=== PATIENT | female | born 1955 | race Caucasian/White ===

== ENCOUNTER → 2017-10-08 | Outpatient (CLI) | payer OTHER | END | disposition home or self-care (01) | LOC: ECHO 13:46 | DX: I10 Essential (primary) hypertension (principal); I35.0 Nonrheumatic aortic (valve) stenosis | CPT/HCPCS: 93306 ==

== ENCOUNTER → 2019-04-13 | Outpatient (CLI) | payer MEDICAID ==
--- NOTE | 2019-04-13 11:15 | CARD ---
MR#: [id number] Date of Study: 04/13/2019 Ordering Physician: JOSIAH PERRY, Referring Physician: JOSIAH PERRY Tech: Roselia Alejandro RDCS APPROVED REPORT EXAM: Two-dimensional and M-mode echocardiogram with Doppler and color Doppler. Other Information Quality : Good INDICATION Aortic Valve Disease 2D DIMENSIONS RVDd2.2 (2.9-3.5cm)Left Atrium(2D)2.7 (1.6-4.0cm) IVSd0.8 (0.7-1.1cm)Aortic Root(2D)2.7 (2.0-3.7cm) LVDd4.2 (3.9-5.9cm)LVOT Diameter1.9 (1.8-2.4cm) PWd0.7 (0.7-1.1cm)LVDs2.8 (2.5-4.0cm) FS (%) 34.4 %SV51.4 ml LVEF(%)60.0 (>50%) Aortic Valve AoV Peak Jey.241.6cm/sAoV VTI43.7cm AO Peak GR.23.4mmHgLVOT Peak Jey.89.4cm/s AO Mean GR.13mmHgAVA (VMAX)1.10cm2 DONNY (VTI)1.10cm2 Mitral Valve MV E Kmsdgwyx80.0cm/sMV DECEL HAJO235tb MV A Rlobdjje20.9cm/sE/A Ratio0.7 Tricuspid Valve TR P. Njelbwhp582gv/sRAP RXJNUZEU3ljEt TR Peak Gr.07fdUnEHZE14zaEq Pulmonary Vein S1 Ofdgpizt30.0cm/sD2 Obnyfqac60.2cm/s LEFT VENTRICLE The left ventricle is normal size. There is normal left ventricular wall thickness. The left ventricu lar systolic function is normal and the ejection fraction is within normal range. The Ejection Fracti on is 55-60%. There is normal LV segmental wall motion. Transmitral Doppler flow pattern is Grade I-a bnormal relaxation pattern. RIGHT VENTRICLE The right ventricle is normal size. The right ventricular systolic function is normal. ATRIA The left atrium size is normal. The right atrium size is normal. The interatrial septum is intact wit h no evidence for an atrial septal defect or patent foramen ovale as noted on 2-D or Doppler imaging. AORTIC VALVE The aortic valve is functionally bicuspid with fusion of the right and left cusps. Doppler and Color Flow revealed trace aortic regurgitation. Calculated aortic valve area is 1.1 cm2 with maximum pressu re gradient of 24 mmHg and mean pressure gradient of 13 mmHg. Doppler and color-flow analysis reveale d mild aortic stenosis. Planimeter of the aortic valve shows an area of 1.7 cm2. MITRAL VALVE The mitral valve is calcified but opens well. Mitral annular calcification is mild. There is no evide nce of mitral valve prolapse. There is no mitral valve stenosis. Doppler and Color Flow revealed no m itral valve regurgitation noted. TRICUSPID VALVE The tricuspid valve is normal in structure and function. Doppler and Color Flow revealed physiologica l tricuspid regurgitation. The PA pressure was estimated at 19 mmHg. There is no tricuspid valve sten osis. PULMONIC VALVE Doppler and Color Flow revealed trace to mild pulmonic valvular regurgitation. There is no pulmonic v alvular stenosis. GREAT VESSELS The aortic root is normal in size. The ascending aorta is normal in size. The IVC is normal in size a nd collapses >50% with inspiration. PERICARDIAL EFFUSION There is no evidence of significant pericardial effusion. Critical Notification Critical Value: No <Conclusion> The left ventricular systolic function is normal and the ejection fraction is within normal range. Th e Ejection Fraction is 55-60%. There is normal LV segmental wall motion. The aortic valve is functionally bicuspid with fusion of the right and left cusps. Calculated aortic valve area is 1.1 cm2 with maximum pressure gradient of 24 mmHg and mean pressure g radient of 13 mmHg. Doppler and color-flow analysis revealed mild aortic stenosis. Planimeter of the aortic valve shows an area of 1.7 cm2. Signed by : Josep Aaron, Electronically Approved : 04/13/2019 11:15:11
== END | disposition home or self-care (01) ==
LOC: ECHO 10:31
PROVIDERS: ATTEND Internal Medicine Cardiovascular Disease
DX: I08.8 Other rheumatic multiple valve diseases (principal)
CPT/HCPCS: 93306

== ENCOUNTER → 2020-04-18 | Outpatient (CLI) | payer MEDICAID ==
--- NOTE | 2020-04-20 11:41 | CARD ---
MR#: [id number] Date of Study: 04/18/2020 Ordering Physician: JOSIAH PERRY, Referring Physician: JOSIAH PERRY Tech: Mavis Salas MADYSON APPROVED REPORT EXAM: Two-dimensional and M-mode echocardiogram with Doppler and color Doppler. Other Information Quality : AverageLimitedTechnically LimitedExcellentGoodAverageHR: 73bpm Rhythm : NSR INDICATION Aortic Valve Disease Murmur RISK FACTORS Hyperlipidemia 2D DIMENSIONS RVDd3.2 (2.9-3.5cm)Left Atrium(2D)2.9 (1.6-4.0cm) IVSd0.8 (0.7-1.1cm)Aortic Root(2D)2.8 (2.0-3.7cm) LVDd3.6 (3.9-5.9cm)LVOT Diameter1.9 (1.8-2.4cm) PWd0.8 (0.7-1.1cm)LVDs2.2 (2.5-4.0cm) FS (%) 37.6 %SV37.4 ml Aortic Valve AoV Peak Jey.229.3cm/sAoV VTI50.2cm AO Peak GR.21.0mmHgLVOT Peak Jey.83.5cm/s AO Mean GR.11mmHgAVA (VMAX)0.99cm2 Mitral Valve MV E Fznkhdam29.4cm/sMV DECEL BWLP642os MV A Hvkleigs63.7cm/sE/A Ratio1.0 MV A Ctgxacbg176wr Pulmonary Valve PV Peak Toocqtne88.5cm/s Tricuspid Valve TR P. Umbykgkc255bk/sTR Peak Gr.20mmHg Pulmonary Vein S1 Odwsrspd24.7cm/sD2 Upjrirhh59.9cm/s PVa espfjqez681ervn LEFT VENTRICLE The left ventricle is normal size. There is normal left ventricular wall thickness. The left ventricu lar systolic function is normal and the ejection fraction is within normal range. Ejection fraction 5 5-60%. There is normal LV segmental wall motion. Tissue Doppler imaging reveals mild abnormal left ve ntricular diastolic dysfunction. No left ventricle thrombus noted on this study. RIGHT VENTRICLE The right ventricle is normal size. There is normal right ventricular wall thickness. The right ventr icular systolic function is normal. ATRIA The left atrium size is normal. The right atrium size is normal. The interatrial septum is intact wit h no evidence for an atrial septal defect or patent foramen ovale as noted on 2-D or Doppler imaging. AORTIC VALVE The aortic valve is mildly calcified. Doppler and Color Flow revealed no significant aortic regurgita tion. There is mild valvular aortic stenosis. MITRAL VALVE The mitral valve is normal in structure and function. There is no evidence of mitral valve prolapse. There is no mitral valve stenosis. Doppler and Color-flow revealed mild mitral regurgitation. TRICUSPID VALVE The tricuspid valve is normal in structure and function. Doppler and Color Flow revealed mild tricusp id regurgitation. PULMONIC VALVE The pulmonary valve is normal in structure and function. Doppler and Color Flow revealed no pulmonic valvular regurgitation. GREAT VESSELS The aortic root is normal in size. The descending aorta is upper limits of normal. The IVC is normal in size and collapses >50% with inspiration. PERICARDIAL EFFUSION There is no evidence of significant pericardial effusion. Critical Notification Critical Value: No <Conclusion> The left ventricle is normal size. The left ventricular systolic function is normal and the ejection fraction is within normal range. Ejection fraction 55-60%. There is normal LV segmental wall motion. The aortic valve is mildly calcified. Doppler and Color Flow revealed no significant aortic regurgitation. There is mild valvular aortic stenosis. Doppler and Color-flow revealed mild mitral regurgitation. Doppler and Color Flow revealed mild tricuspid regurgitation. Signed by : Lenny Duncan MD Electronically Approved : 04/20/2020 11:40:55
== END ==
LOC: ECHO 10:30
PROVIDERS: ATTEND Internal Medicine Cardiovascular Disease
DX: I08.3 Combined rheumatic disorders of mitral, aortic and tricuspid valves (principal)
CPT/HCPCS: 93306

== ENCOUNTER → 2020-05-03 | Outpatient (CLI) | payer MEDICAID ==
[~2020-05-03] MED LIST: ACET500T68 PO; BUPR100T8 PO; CALC-77 PO; CRESTOR5 MG PO; ESTR1TAB5 PO; HYDR12.575 PO; LACT1CAP37 PO; LORA10TA3 PO; MECO10005 PO; MULT-245 PO; ONDA4TAB12 PO; TEMA15CA PO; TIZA4TAB2 PO; TOPI50TA8 PO; VILA1TAB2 PO
== END ==
LOC: LAB 11:17
PROVIDERS: ATTEND Internal Medicine Cardiovascular Disease
DX: Z01.812 Encounter for preprocedural laboratory examination (principal); I63.9 Cerebral infarction, unspecified; I35.0 Nonrheumatic aortic (valve) stenosis; Z20.828 Contact with and (suspected) exposure to other viral communicable diseases
CPT/HCPCS: U0003

== ENCOUNTER 2020-05-07 08:38 | Outpatient (CLI) | payer MEDICAID ==
[~2020-05-07] VITALS: Ht 154.9 cm; Wt 48.5 kg
[2020-05-07] VITALS (7 sets, daily range): BP systolic 109–124; BP diastolic 62–68
[2020-05-07 09:19] LABS: HEMATOCRIT 38.8 % (36.0-47.0); HEMOGLOBIN 13.1 g/dL (12.0-15.5); RED BLOOD COUNT 4.2 x10^6/uL (3.50-5.40); WHITE BLOOD COUNT 5.8 x10^3/uL (4.0-11.0)
[2020-05-07 09:35] LABS: PROTHROMBIN TIME PATIENT 13.6 SEC (11.7-14.0)
[2020-05-07] MEDS ORDERED: LIDOCAINE 2%/EPI 1:100,000 20 ML VIAL. ONE (10:01)
[2020-05-07] MEDS ORDERED: fentaNYL PF VIAL 100 MCG/2 ML VIAL ONE (10:11)
[2020-05-07] MEDS ORDERED: BUPR100T8 PO (10:27)
[2020-05-07] MEDS ORDERED: ONDA4TAB12 PO (10:27)
[2020-05-07] MEDS ORDERED: TIZA4TAB2 PO (10:27)
[2020-05-07] MEDS ORDERED: MULT-245 PO (10:27)
[2020-05-07] MEDS ORDERED: ESTR1TAB5 PO (10:27)
[2020-05-07] MEDS ORDERED: VILA1TAB2 PO (10:27)
[2020-05-07] MEDS ORDERED: TEMA15CA PO (10:27)
[2020-05-07] MEDS ORDERED: LORA10TA3 PO (10:27)
[2020-05-07] MEDS ORDERED: MECO10005 PO (10:27)
[2020-05-07] MEDS ORDERED: HYDR12.575 PO (10:27)
[2020-05-07] MEDS ORDERED: ACET500T68 PO (10:27)
[2020-05-07] MEDS ORDERED: TOPI50TA8 PO (10:27)
[2020-05-07] MEDS ORDERED: LACT1CAP29 PO (10:27)
[2020-05-07] MEDS ORDERED: CALC-77 PO (10:27)
[2020-05-07] MEDS ORDERED: CRESTOR5 MG PO (10:27)
[2020-05-07] MEDS ORDERED: fentaNYL PF VIAL 100 MCG/2 ML VIAL IV ONE (10:30)
[2020-05-07] MEDS ORDERED: LIDOCAINE 2%/EPI 1:100,000 20 ML VIAL. IJ ONE (10:30)
--- NOTE | 2020-05-07 10:50 | CARD ---
MR#: [id number] Date of Study: 05/07/2020 Ordering Physician: JOSIAH OLIVIA, Referring Physician: JOSIAH OLIVIA, Tech: APPROVED REPORT EXAM Biotronik loop recorder explantation INDICATIONS CVA s/p loop recorder implantation presenting with battery depletion Blood loss: < 5 ml EXPLANTED DEVICES And informed consent was obtained from patient. She was brought to the cardiac [facility] and her left chest and shoulder were prepped and draped in the usual fashion. 10 cc of 2% lidocaine was infiltra pricila to the skin and subcutaneous tissues for local anesthesia. An incision was made over the previou s scar and using blunt dissection and cautery, the previously placed Biotronik loop recorder was garth manisha. The incision was closed in 1 layer. Hemostasis was secured. She tolerated the procedure well. There were no immediate complications. CONCLUSION Successful explantation of Biotronik loop recorder. Signed by : Josiah Olivia, Electronically Approved : 05/07/2020 10:49:20
--- NOTE | 2020-05-07 12:21 | NUR ---
Discharge Note: [facility] Discharge instructions and discharge home medications reviewed with Patient and a copy given. All questions have been answered and understanding verbalized. The following instructions and handouts were given: incision care Discontinued lines and drains: Peripheral IV intact. Patient discharged to Home or Self Care withFriendvia Ambulated. Patient's left chest became red and irritated by the tape from the dressing so this was removed and aloe lotion applied to reddness. Bandaids placed over steri-strips. Adhesive tape allergy added to patient's allergy list.
== END 2020-05-07 12:05 | disposition home or self-care (01) ==
LOC: CCL 08:38
PROVIDERS: ATTEND Internal Medicine Cardiovascular Disease
DX: Z45.09 Encounter for adjustment and management of other cardiac device (principal); I63.9 Cerebral infarction, unspecified; E78.00 Pure hypercholesterolemia, unspecified; E11.9 Type 2 diabetes mellitus without complications; E03.9 Hypothyroidism, unspecified; F32.9 Major depressive disorder, single episode, unspecified; Z79.899 Other long term (current) drug therapy; Z98.890 Other specified postprocedural states; Z88.8 Allergy status to other drugs, medicaments and biological substances
CPT/HCPCS: 33286; 36415; 85027; 85610; J3010; J3490

== ENCOUNTER → 2021-04-24 | Outpatient (CLI) | payer MEDICAID ==
[2020-05-07 11:45] VITALS: BP 119/67
[~2021-04-24] MED LIST changes: +TIZA-75 PO; -TIZA4TAB2 PO
--- NOTE | 2021-04-24 18:02 | CARD ---
MR#: [id number] Date of Study: 04/24/2021 Ordering Physician: JOSIAH PERRY, Referring Physician: JOSIAH PERRY, Tech: Danna Steward [facility] APPROVED REPORT EXAM: Two-dimensional and M-mode echocardiogram with Doppler and color Doppler. Other Information Quality : AverageHR: 63bpm INDICATION CVA/TIA RISK FACTORS Hyperlipidemia Asthma 2D DIMENSIONS RVDd2.3 (2.9-3.5cm)Left Atrium(2D)2.4 (1.6-4.0cm) IVSd0.8 (0.7-1.1cm)Aortic Root(2D)2.8 (2.0-3.7cm) LVDd4.1 (3.9-5.9cm)LVOT Diameter2.0 (1.8-2.4cm) PWd0.8 (0.7-1.1cm)LVDs3.3 (2.5-4.0cm) FS (%) 20.0 %SV31.1 ml Aortic Valve AoV Peak Jey.224.5cm/sAoV VTI49.5cm AO Peak GR.20.2mmHgLVOT Peak Jey.86.0cm/s LVOT VTI 20.59cmAO Mean GR.12mmHg DONNY (VMAX)1.12ql2EUC (VTI)1.34cm2 Mitral Valve MV E Uheepbju94.5cm/sMV DECEL RAFQ737hs MV A Cwtfvdic18.1cm/sMV E Mean Gr.2mmHg MV RWD01jcM/A Ratio1.4 MVA (PHT)5.05cm2 TDI E/Lateral E'7.6E/Medial E'11.6 Pulmonary Valve PV Peak Umujknmv71.4cm/sPV Peak Grad.3mmHg Tricuspid Valve TR P. Eheleijc892jd/sRAP XYWEHYZB9swSp TR Peak Gr.34hlDhQGSU11jtMi Pulmonary Vein S1 Wloritmy06.9cm/sD2 Kmgnpsmh73.4cm/s PVa muidtwvl05hdna LEFT VENTRICLE The left ventricle is normal size. There is normal left ventricular wall thickness. The left ventricu lar systolic function is normal and the ejection fraction is within normal range. The Ejection Fracti on is 55-60%. There is normal LV segmental wall motion. Transmitral Doppler flow pattern is Grade II- pseudonormal filling dynamics. RIGHT VENTRICLE The right ventricle is normal size. There is normal right ventricular wall thickness. The right ventr icular systolic function is normal. ATRIA The left atrium size is normal. The right atrium size is normal. The interatrial septum is intact wit h no evidence for an atrial septal defect or patent foramen ovale as noted on 2-D or Doppler imaging. AORTIC VALVE The aortic valve is calcified and displays decreased opening. Doppler and Color Flow revealed trace a ortic regurgitation. Calculated aortic valve area is 1.31 cm2 with maximum pressure gradient of 24 mm Hg and mean pressure gradient of 13 mmHg. There is mild valvular aortic stenosis. MITRAL VALVE The mitral valve is normal in structure and function. There is no evidence of mitral valve prolapse. There is no mitral valve stenosis. Doppler and Color-flow revealed trace mitral regurgitation. TRICUSPID VALVE The tricuspid valve is normal in structure and function. Doppler and Color Flow revealed trace tricus pid regurgitation with an estimated PAP of 28 mmHg. There is no tricuspid valve stenosis. PULMONIC VALVE The pulmonic valve is not well visualized. Doppler and Color Flow revealed no pulmonic valvular regur gitation. GREAT VESSELS The aortic root is normal in size. The IVC is normal in size and collapses >50% with inspiration. PERICARDIAL EFFUSION There is no evidence of significant pericardial effusion. Critical Notification Critical Value: No <Conclusion> The left ventricle is normal size. The left ventricular systolic function is normal and the ejection fraction is within normal range. The Ejection Fraction is 55-60%. There is normal LV segmental wall motion. The interatrial septum is intact with no evidence for an atrial septal defect or patent foramen ovale as noted on 2-D or Doppler imaging. Doppler and Color Flow revealed trace aortic regurgitation. Calculated aortic valve area is 1.31 cm2 with maximum pressure gradient of 24 mmHg and mean pressure gradient of 13 mmHg. There is mild valvular aortic stenosis. Doppler and Color-flow revealed trace mitral regurgitation. Doppler and Color Flow revealed trace tricuspid regurgitation with an estimated PAP of 28 mmHg. Signed by : Lenny Duncan MD Electronically Approved : 04/24/2021 18:01:25
== END ==
LOC: ECHO 10:22
PROVIDERS: ATTEND Internal Medicine Cardiovascular Disease
DX: I35.1 Nonrheumatic aortic (valve) insufficiency (principal); I63.9 Cerebral infarction, unspecified
CPT/HCPCS: 93306